=== PATIENT | male | born 1950 | race Caucasian/White ===

== ENCOUNTER 2020-04-06 13:42 | Emergency (ER) | payer MEDICARE, SELFPAY ==
--- NOTE | 2020-04-06 13:51 | ED.GENADULT ---
HPI - General Adult General Chief complaint: Skin/Abscess/Foreign Body Stated complaint: left arm subcutaneous Time Seen by Provider: 04/06/20 14:07 Source: patient Mode of arrival: ambulatory Limitations: no limitations History of Present Illness HPI narrative: 69-year-old male patient presents to the [facility] with complaints of a wound to the left forearm x4 days. Patient states he does not really remember how he got the wound however he states he has been helping out his son clean out his barn and is around a lot of horse maneuver, and other dirty materials. Patient does have history of type 2 diabetes. Patient states he has been cleaning the area with soap and water and applying Neosporin to the area. Denies any pain at this time. Denies any itching. Denies any fevers, body aches or chills. Denies any chest pain, shortness of breath, abdominal pain, nausea, vomiting or diarrhea. Related Data Allergies Allergy/AdvReac Type Severity Reaction Status Date / Time No Known Allergies Allergy Unverified 01/27/14 14:16 Review of Systems Review of Systems: Narrative: CONSTITUTIONAL: Denies fever, chills, or sweats. EYES: Denies visual changes, redness, or discharge. ENT: Denies rhinorrhea, congestion, sore throat, or otalgia. CARDIOVASCULAR: Denies chest pain, palpitations, or edema. RESPIRATORY: Denies cough or dyspnea. GASTROINTESTINAL: Denies abdominal pain, nausea, vomiting, or diarrhea. GENITOURINARY: Denies dysuria or hematuria. SKIN: Denies rash or itching. Positive wound to left forearm x4 days MUSCULOSKELETAL: Denies back pain, joint pain, or myalgia. NEUROLOGIC: Denies headache, numbness, or weakness. PSYCHIATRIC: Denies anxiety or depression. [facility] Past Medical History Medical History (Updated 04/06/20 @ 14:13 by ALEXANDREA Lucas) GERD (gastroesophageal reflux disease) Hypercholesterolemia Hypertension Type 2 diabetes mellitus Surgical History Surgical History (Updated 04/06/20 @ 13:58 by ALEXANDREA Lucas) H/O prostatectomy History of appendectomy Comments At the time of my signature I agree with nursing past medical history, surgical, social, and family history. There is no relevant family history pertinent to the presenting complaint. Exam Narrative: Exam Narrative: GENERAL: Well-appearing, well-nourished, and in no acute distress. HEAD: Normocephalic, atraumatic. EYES: PERRLA and EOMI. ENT: Nares clear, no rhinorrhea or epistaxis. Mucous membranes moist. NECK: Supple. No lymphadenopathy CHEST: Clear to auscultation. No respiratory distress. HEART: Regular rate and rhythm. No murmur heard. Normal peripheral pulses. ABDOMEN: Soft, nontender, nondistended, normal active bowel sounds. EXTREMITIES: Normal range of motion. No edema. SKIN: Warm, dry, no rash. Patient has approximately 3 cm linear very superficial healing wound noted to the left forearm. There is no surrounding erythema, no warmth noted. There is no open areas or drainage. NEURO: No focal deficits. Alert and oriented x3. Course Vital Signs Vital signs: Vital Signs Temperature 36.7 C 04/06/20 13:54 Pulse Rate 69 04/06/20 13:54 Respiratory Rate 16 04/06/20 13:54 Blood Pressure 135/73 04/06/20 13:54 Pulse Oximetry 99 04/06/20 13:54 Temperature 36.7 C 04/06/20 13:54 Pulse Rate 69 04/06/20 13:54 Respiratory Rate 16 04/06/20 13:54 Blood Pressure 135/73 04/06/20 13:54 Pulse Oximetry 99 04/06/20 13:54 Vital signs reviewed. Medical Decision Making Differential Diagnosis Differential Diagnosis: Differential diagnosis: Abscess, cellulitis, hidradenitis, laceration, puncture wound. Discussed with patient it appears that the wound is healing well and that he needs to continue to keep doing what he is doing, washing it well and applying antibiotic ointment. Discussed with him I will go ahead and prescribe him some antibiotic ointment today to help with the healing. Discussed with him he needs
[2020-04-06 13:54] VITALS: BP 135/73; PULSE 69; RESP 16; TEMP 36.7; O2SAT 99
== END 2020-04-06 14:18 | disposition home or self-care (01) ==
PROVIDERS: Emergency Provider Nurse Practitioner Family
DX: S51.802A Unspecified open wound of left forearm, initial encounter (principal); X58.XXXA Exposure to other specified factors, initial encounter; K21.9 Gastro-esophageal reflux disease without esophagitis; E78.00 Pure hypercholesterolemia, unspecified; I10 Essential (primary) hypertension; E11.9 Type 2 diabetes mellitus without complications; Z90.79 Acquired absence of other genital organ(s)
CPT/HCPCS: 99203; G0463